=== PATIENT | female | born 1955 | race Caucasian/White ===

== ENCOUNTER 2018-07-19 02:00 | Inpatient (IN) | payer OTHER ==
[2018-07-19] MEDS: ALBUTEROL 0.5% (NEB) 2.5 MG/0.5 ML AMP INH (02:24)
[2018-07-19 02:25] LABS: ADD MAN DIFF? NO
[2018-07-19 02:27] LABS: WHITE BLOOD COUNT 7.2 10^3/ul (4.8-10.8)
[2018-07-19 02:27] LABS: BASOPHIL # 0.1 10^3/ul (0.0-0.1); BASOPHILS % 0.8 % (0.0-2.0); EOSINOPHILS # 0.5 10^3/ul (0.0-0.5); EOSINOPHILS % 6.7 % (0.0-7.0); HEMATOCRIT 36.4 % (37.0-47.0); HEMOGLOBIN 11.6 g/dl (12.0-16.0); LYMPHOCYTES # 1.3 10^3/ul (0.8-2.9); LYMPHOCYTES % 18.1 % (15.0-51.0); MEAN CORPUSCULAR HEMOGLOBIN 32.5 pg (29.0-33.0); MEAN CORPUSCULAR HGB CONC 31.9 g/dl (32.0-37.0); MEAN PLATELET VOLUME 12.3 fl (7.4-10.4); MONOCYTE # 0.5 10^3/ul (0.3-0.9); NEUTROPHIL # 4.8 10^3/ul (1.6-7.5); NEUTROPHILS % 66.7 % (39.0-77.0); PLATELET COUNT 422 10^3/UL (140-415); RED BLOOD COUNT 3.57 10^6/ul (4.20-5.40); RED CELL DISTRIBUTION WIDTH 12.7 % (11.5-14.5)
[2018-07-19 02:35] LABS: AADO2 Arterial 183.7 mmHg (7.0-24.0); Allen Test ACCEPTAB; Arterial Base Excess -3.8 mmol/L (-3.0-3); Arterial Blood Gas Oxygen Sat 98.4 mmHG (95.0-98.0); Arterial COHb 0.2 % (0.0-3.0); Arterial Fraction of Oxyhgb 97.9 % (93.0-99.0); Arterial HCO3 20.4 mmol/L (22.0-26.0); Arterial MetHb 0.3 % (0.0-1.5); Arterial pCO2 34.5 mmhg (35-45); MODE VENT - AC; Site Left Radial
[2018-07-19] MEDS: SOD CHLORIDE 0.9% 1,000 ML IV (02:35)
[2018-07-19 02:45] LABS: INR 1.11; PROTIME 14.4 Sec (11.9-14.9); PT RATIO 1.1
[2018-07-19 02:46] LABS: PARTIAL THROMBOPLASTIN TIME 31.9 Sec (23.0-35.0)
[2018-07-19 02:49] LABS: ALANINE AMINOTRANSFERASE 49 IU/L (13-69); ALBUMIN 3.6 g/dl (3.3-4.9); ALBUMIN/GLOBULIN RATIO 1.09; ALKALINE PHOSPHATASE 171 IU/L (42-121); ANION GAP 13 (5-13); ASPARTATE AMINO TRANSFERASE 68 IU/L (15-46); BILIRUBIN,INDIRECT 0.2 mg/dl (0-1.1); BILIRUBIN,TOTAL 0.2 mg/dl (0.2-1.3); BLOOD UREA NITROGEN 20 mg/dl (7-20); CALCIUM 9.6 mg/dl (8.4-10.2); CARBON DIOXIDE 26 mmol/L (21-31); CHLORIDE 108 mmol/L (97-110); Estimated GFR > 60 mL/min (>60); GLUCOSE 148 mg/dl (70-220); LIPASE 1251 U/L (23-300); POTASSIUM 4.1 mmol/L (3.5-5.1); SODIUM 147 mmol/L (135-144); TOTAL PROTEIN 6.9 g/dl (6.1-8.1)
[2018-07-19 03:00] LABS: TROPONIN-I 0.017 ng/ml (0.000-0.120)
[2018-07-19 03:25] LABS: B-TYPE NATRIURETIC PEPTIDE 4510 PG/ML (0-125)
[2018-07-19] MEDS: FENTAnyl (DRIP) 1000 mcg/100mL 100 ML IV ×3 (03:43→23:25)
[2018-07-19] MEDS: FUROSEMIDE 40 MG INJ IV (03:49)
[2018-07-19] MEDS: CEFEPIME 1GM/50 ML (PMX) 50 ML IVPB (03:49)
[2018-07-19 04:23] LABS: ADD UMIC YES; UR AMORPHOUS CRYSTAL FEW /HPF (NONE SEEN); UR ASCORBIC ACID 40 mg/dL (NEGATIVE); UR BILIRUBIN (Dip) NEGATIVE (NEGATIVE); UR BLOOD (Dip) 2+ mg/dL (NEGATIVE); UR BUDDING YEAST FEW /HPF (NONE SEEN); UR CLARITY CLOUDY (CLEAR); UR COLOR YELLOW (YELLOW); UR GLUCOSE (Dip) NEGATIVE (NEGATIVE); UR GRANULAR CAST FEW /HPF (NONE SEEN); UR HYALINE CAST FEW /HPF (NONE SEEN); UR KETONES (Dip) NEGATIVE (NEGATIVE); UR LEUKOCYTE ESTERASE (Dip) 1+ Leu/ul (NEGATIVE); UR NITRITE (Dip) NEGATIVE (NEGATIVE); UR RBC > 182 /HPF (0-5); UR SPECIFIC GRAVITY (Dip) 1.019 (1.003-1.030); UR TOTAL PROTEIN (Dip) 2+ mg/dl (NEGATIVE); UR UROBILINOGEN (Dip) NEGATIVE (NEGATIVE); UR WBC 75 /HPF (0-5)
[2018-07-19 09:26] LABS: HEMOGLOBIN A1C 5.7 % (0-5.9)
[2018-07-19] MEDS: PROPOFOL 100 ML IV (11:13)
[2018-07-19] MEDS: SOD CHLORIDE 0.9% 500 ML IV (12:59)
[2018-07-19] MEDS: SPIRONOLACTONE 25 MG TAB PEG (13:30)
[2018-07-19] MEDS: LISINOPRIL 20 MG TAB GTB (13:30)
[2018-07-19] MEDS ORDERED: NORepinephrine 8MG/250 ML (PMX 250 ML (14:04)
[2018-07-19] MEDS: NORepinephrine 8MG/250 ML (PMX 250 ML IV (14:30)
[2018-07-19] MEDS: FAMOTIDINE 20 MG TAB PEG (21:24)
[2018-07-19] MEDS: APIXABAN 5 MG TABLET GTB (21:26)
[2018-07-19] MEDS: ATORVASTATIN 20 MG TAB GTB (21:26)
[2018-07-19] MEDS ORDERED: MIDAZOLAM (DRIP) 50 mg/50 mL 50 ML IV (22:00)
[2018-07-19] MEDS ORDERED: FENTAnyl (DRIP) 1000 mcg/100mL 100 ML IV (22:00)
[2018-07-20 05:20] LABS: ADD MAN DIFF? NO
[2018-07-20 05:30] LABS: BASOPHILS % 0.7 % (0.0-2.0); EOSINOPHILS # 0.3 10^3/ul (0.0-0.5); EOSINOPHILS % 4.5 % (0.0-7.0); HEMATOCRIT 30.3 % (37.0-47.0); HEMOGLOBIN 9.9 g/dl (12.0-16.0); LYMPHOCYTES # 1.3 10^3/ul (0.8-2.9); LYMPHOCYTES % 23.2 % (15.0-51.0); MEAN CORPUSCULAR HEMOGLOBIN 33.3 pg (29.0-33.0); MEAN CORPUSCULAR HGB CONC 32.7 g/dl (32.0-37.0); MONOCYTE # 0.5 10^3/ul (0.3-0.9); MONOCYTES % 8.5 % (0.0-11.0); NEUTROPHIL # 3.6 10^3/ul (1.6-7.5); NEUTROPHILS % 62.6 % (39.0-77.0); PLATELET COUNT 302 10^3/UL (140-415); RED BLOOD COUNT 2.97 10^6/ul (4.20-5.40); RED CELL DISTRIBUTION WIDTH 13.1 % (11.5-14.5)
[2018-07-20 05:30] LABS: WHITE BLOOD COUNT 5.8 10^3/ul (4.8-10.8)
[2018-07-20 05:47] LABS: ANION GAP 9 (5-13); BLOOD UREA NITROGEN 21 mg/dl (7-20); CALCIUM 8.9 mg/dl (8.4-10.2); CARBON DIOXIDE 29 mmol/L (21-31); CHLORIDE 107 mmol/L (97-110); CREATININE 0.58 mg/dl (0.44-1.00); Estimated GFR > 60 mL/min (>60); GLUCOSE 104 mg/dl (70-220); POTASSIUM 5.2 mmol/L (3.5-5.1); SODIUM 145 mmol/L (135-144)
[2018-07-20] MEDS: SPIRONOLACTONE 25 MG TAB PEG (08:25)
[2018-07-20] MEDS: LISINOPRIL 20 MG TAB GTB (08:25)
[2018-07-20] MEDS: FAMOTIDINE 20 MG TAB PEG ×2 (08:33→20:12)
[2018-07-20] MEDS: APIXABAN 5 MG TABLET GTB ×2 (08:33→20:12)
[2018-07-20 14:54] LABS: TROPONIN-I < 0.012 ng/ml (0.000-0.120)
[2018-07-20] MEDS: ACETAMINOPHEN 650MG/20.3ML CUP GTB (20:12)
[2018-07-20] MEDS: ATORVASTATIN 20 MG TAB GTB (20:12)
[2018-07-20] MEDS: LORAZEPAM 2 MG INJ IV (21:42)
[2018-07-21] MEDS: LORAZEPAM 2 MG INJ IV ×4 (01:23→20:01)
[2018-07-21] MEDS: LISINOPRIL 20 MG TAB GTB (09:00)
[2018-07-21 09:02] LABS: ADD MAN DIFF? NO
[2018-07-21 09:09] LABS: BASOPHILS % 0.5 % (0.0-2.0); EOSINOPHILS # 0.2 10^3/ul (0.0-0.5); HEMATOCRIT 31.7 % (37.0-47.0); LYMPHOCYTES # 1.2 10^3/ul (0.8-2.9); LYMPHOCYTES % 15.4 % (15.0-51.0); MEAN CORPUSCULAR HEMOGLOBIN 32.3 pg (29.0-33.0); MEAN CORPUSCULAR HGB CONC 31.5 g/dl (32.0-37.0); MEAN CORPUSCULAR VOLUME 102.3 fl (82.0-101.0); MEAN PLATELET VOLUME 12.1 fl (7.4-10.4); MONOCYTE # 0.5 10^3/ul (0.3-0.9); MONOCYTES % 6.7 % (0.0-11.0); NEUTROPHIL # 5.7 10^3/ul (1.6-7.5); PLATELET COUNT 342 10^3/UL (140-415)
[2018-07-21 09:09] LABS: WHITE BLOOD COUNT 7.7 10^3/ul (4.8-10.8)
[2018-07-21 09:27] LABS: ANION GAP 11 (5-13); BLOOD UREA NITROGEN 20 mg/dl (7-20); CALCIUM 9.2 mg/dl (8.4-10.2); CARBON DIOXIDE 28 mmol/L (21-31); CHLORIDE 106 mmol/L (97-110); CREATININE 0.56 mg/dl (0.44-1.00); Estimated GFR > 60 mL/min (>60); GLUCOSE 122 mg/dl (70-220); PHOSPHORUS 3.8 mg/dl (2.5-4.9); POTASSIUM 3.8 mmol/L (3.5-5.1); SODIUM 145 mmol/L (135-144)
[2018-07-21 09:27] LABS: LIPASE 833 U/L (23-300)
[2018-07-21] MEDS: APIXABAN 5 MG TABLET GTB ×2 (09:44→20:09)
[2018-07-21] MEDS: SPIRONOLACTONE 25 MG TAB PEG (09:45)
[2018-07-21] MEDS: FAMOTIDINE 20 MG TAB PEG ×2 (09:45→20:09)
[2018-07-21] MEDS: morphine LIQ (10 MG/5 ML) CUP PO (15:49)
[2018-07-21] MEDS: ACETAMINOPHEN 650MG/20.3ML CUP GTB (20:08)
[2018-07-21] MEDS: ATORVASTATIN 20 MG TAB GTB (20:09)
[2018-07-22] MEDS: LORAZEPAM 2 MG INJ IV ×3 (00:06→13:55)
[2018-07-22] MEDS: morphine LIQ (10 MG/5 ML) CUP PO ×2 (00:39→16:33)
[2018-07-22 09:15] LABS: ADD MAN DIFF? NO
[2018-07-22 09:18] LABS: BASOPHILS % 0.5 % (0.0-2.0); EOSINOPHILS # 0.3 10^3/ul (0.0-0.5); EOSINOPHILS % 3.8 % (0.0-7.0); HEMATOCRIT 30.3 % (37.0-47.0); HEMOGLOBIN 10.1 g/dl (12.0-16.0); LYMPHOCYTES # 1.1 10^3/ul (0.8-2.9); LYMPHOCYTES % 13.4 % (15.0-51.0); MEAN CORPUSCULAR HEMOGLOBIN 33.3 pg (29.0-33.0); MEAN CORPUSCULAR HGB CONC 33.3 g/dl (32.0-37.0); MEAN PLATELET VOLUME 12.2 fl (7.4-10.4); MONOCYTE # 0.6 10^3/ul (0.3-0.9); MONOCYTES % 7.3 % (0.0-11.0); NEUTROPHIL # 6.3 10^3/ul (1.6-7.5); NEUTROPHILS % 74.5 % (39.0-77.0); PLATELET COUNT 346 10^3/UL (140-415); RED BLOOD COUNT 3.03 10^6/ul (4.20-5.40); RED CELL DISTRIBUTION WIDTH 12.8 % (11.5-14.5)
[2018-07-22 09:18] LABS: WHITE BLOOD COUNT 8.5 10^3/ul (4.8-10.8)
[2018-07-22 09:37] LABS: ANION GAP 14 (5-13); BLOOD UREA NITROGEN 18 mg/dl (7-20); CALCIUM 9.1 mg/dl (8.4-10.2); CARBON DIOXIDE 27 mmol/L (21-31); CHLORIDE 104 mmol/L (97-110); CREATININE 0.57 mg/dl (0.44-1.00); Estimated GFR > 60 mL/min (>60); GLUCOSE 141 mg/dl (70-220); MAGNESIUM 1.9 mg/dl (1.7-2.5); PHOSPHORUS 3.6 mg/dl (2.5-4.9); POTASSIUM 3.6 mmol/L (3.5-5.1); SODIUM 145 mmol/L (135-144)
[2018-07-22] MEDS: LISINOPRIL 20 MG TAB GTB (09:55)
[2018-07-22] MEDS: SPIRONOLACTONE 25 MG TAB PEG (09:55)
[2018-07-22] MEDS: APIXABAN 5 MG TABLET GTB ×2 (09:55→20:28)
[2018-07-22] MEDS: FAMOTIDINE 20 MG TAB PEG ×2 (09:56→20:29)
[2018-07-22] MEDS: QUETIAPINE 25 MG TAB GTB ×2 (09:56→20:29)
[2018-07-22] MEDS: MAGNESIUM SULFATE 2 GM/50 ML 50 ML IVPB (13:55)
[2018-07-22] MEDS: POTASSIUM CHLORIDE 20 MEQ POWDER FOR ORAL SOLN JT (13:55)
[2018-07-22] MEDS: ATORVASTATIN 20 MG TAB GTB (20:29)
[2018-07-23] MEDS: LORAZEPAM 2 MG INJ IV ×2 (04:07→20:14)
[2018-07-23 04:23] LABS: ADD MAN DIFF? NO
[2018-07-23 04:30] LABS: WHITE BLOOD COUNT 8.4 10^3/ul (4.8-10.8)
[2018-07-23 04:30] LABS: BASOPHIL # 0.1 10^3/ul (0.0-0.1); BASOPHILS % 0.6 % (0.0-2.0); EOSINOPHILS # 0.4 10^3/ul (0.0-0.5); EOSINOPHILS % 4.7 % (0.0-7.0); HEMATOCRIT 31.4 % (37.0-47.0); HEMOGLOBIN 10.1 g/dl (12.0-16.0); LYMPHOCYTES # 1.1 10^3/ul (0.8-2.9); MEAN CORPUSCULAR HGB CONC 32.2 g/dl (32.0-37.0); MEAN CORPUSCULAR VOLUME 99.4 fl (82.0-101.0); MEAN PLATELET VOLUME 12.2 fl (7.4-10.4); MONOCYTE # 0.6 10^3/ul (0.3-0.9); MONOCYTES % 6.8 % (0.0-11.0); NEUTROPHIL # 6.2 10^3/ul (1.6-7.5); NEUTROPHILS % 74.4 % (39.0-77.0); PLATELET COUNT 337 10^3/UL (140-415); RED BLOOD COUNT 3.16 10^6/ul (4.20-5.40); RED CELL DISTRIBUTION WIDTH 13.1 % (11.5-14.5)
[2018-07-23 04:46] LABS: ANION GAP 9 (5-13); BLOOD UREA NITROGEN 17 mg/dl (7-20); CARBON DIOXIDE 27 mmol/L (21-31); CHLORIDE 108 mmol/L (97-110); CREATININE 0.61 mg/dl (0.44-1.00); Estimated GFR > 60 mL/min (>60); GLUCOSE 131 mg/dl (70-220); MAGNESIUM 2.3 mg/dl (1.7-2.5); SODIUM 144 mmol/L (135-144)
[2018-07-23] MEDS: QUETIAPINE 25 MG TAB GTB ×2 (09:02→20:14)
[2018-07-23] MEDS: FAMOTIDINE 20 MG TAB PEG ×2 (09:03→20:14)
[2018-07-23] MEDS: SPIRONOLACTONE 25 MG TAB PEG (09:03)
[2018-07-23] MEDS: LISINOPRIL 20 MG TAB GTB (09:03)
[2018-07-23] MEDS: APIXABAN 5 MG TABLET GTB ×2 (09:03→20:13)
[2018-07-23] MEDS: ATORVASTATIN 20 MG TAB GTB (20:13)
[2018-07-24] MEDS: LISINOPRIL 20 MG TAB GTB (08:47)
[2018-07-24] MEDS: FAMOTIDINE 20 MG TAB PEG ×2 (08:47→20:29)
[2018-07-24] MEDS: SPIRONOLACTONE 25 MG TAB PEG (08:47)
[2018-07-24] MEDS: QUETIAPINE 25 MG TAB GTB ×2 (08:47→20:29)
[2018-07-24] MEDS: APIXABAN 5 MG TABLET GTB ×2 (08:47→20:29)
[2018-07-24] MEDS: LORAZEPAM 2 MG INJ IV ×2 (08:47→20:29)
[2018-07-24] MEDS: ATORVASTATIN 20 MG TAB GTB (20:29)
[2018-07-25] MEDS: LORAZEPAM 2 MG INJ IV ×2 (02:16→08:06)
[2018-07-25] MEDS: QUETIAPINE 25 MG TAB GTB (08:05)
[2018-07-25] MEDS: APIXABAN 5 MG TABLET GTB (08:05)
[2018-07-25] MEDS: SPIRONOLACTONE 25 MG TAB PEG (08:06)
[2018-07-25] MEDS: FAMOTIDINE 20 MG TAB PEG (08:06)
[2018-07-25] MEDS: LISINOPRIL 20 MG TAB GTB (08:06)
[2018-07-25] MEDS ORDERED: QUETIAPINE 25 MG TAB GTB (11:30)
== END 2018-07-25 21:08 | DRG 91 ==
LOC: 6WM 07-23 07:20 → E/R 02:00 → ICU 03:55
PROC: 5A1955Z Respiratory Ventilation, Greater than 96 Consecutive Hours (ICD-10-PCS; principal; 2018-07-19)
DX: G93.1 Anoxic brain damage, not elsewhere classified (principal); K85.90 Acute pancreatitis without necrosis or infection, unspecified; G92 Toxic encephalopathy; J96.10 Chronic respiratory failure, unspecified whether with hypoxia or hypercapnia; N39.0 Urinary tract infection, site not specified; I50.22 Chronic systolic (congestive) heart failure; Z99.11 Dependence on respirator [ventilator] status; I42.9 Cardiomyopathy, unspecified; E78.5 Hyperlipidemia, unspecified; D64.9 Anemia, unspecified; I11.0 Hypertensive heart disease with heart failure; R13.10 Dysphagia, unspecified; Z86.74 Personal history of sudden cardiac arrest; Z93.0 Tracheostomy status; Z93.1 Gastrostomy status; Z87.891 Personal history of nicotine dependence; Z86.73 Personal history of transient ischemic attack (TIA), and cerebral infarction without residual deficits
CPT/HCPCS: 36415; 36600; 70551; 71045; 80048; 80053; 81001; 82803; 82962; 83036; 83605; 83690; 83735; 83880; 84100; 84484; 85025; 85610; 85730; 87040; 87081; 87086; 87400; 93005; 93306; 94002; 94003; 94644; 95819; 96361; 96374; 96375; 99291-25